=== PATIENT | female | born 2000 ===

== ENCOUNTER 2025-03-18 05:56 | Outpatient (REF) | payer OTHER, SELFPAY ==
--- OUTSIDE RECORDS SUMMARY | 2025-03-18 05:59 | XMS_ITS | Encounter Summary ---
Author Organization [facility] Address [address] [place] [id number] Phone Care Team Providers Care Reed Cleaner Name Role Phone Abilio Justice MD Primary Care Provider [phone] Encounter Details Date Type Department Care Team (Late st Contact Info) Description 02/17/2017 Conversion Encounter [facility] [address] [facility], [address] [place], [place] [address] More Churchill MD [address] [place] [place] [address] [address] [place] [address] Social History Tobacco Use Types Packs/Day Years Used Date Smoking Tobacco: Never Comments:never smoker Comments Unknown Sex and Gender Information Value Date Recorded Sex Assigned at Not on file Legal Sex Female 12:44 AM EST Gender Identity Not on file Sexual Orientation Straight 05/16/2019 10 :08 AM EDT documented as of this encounter Plan of Treatment Not on file documented as of this encounter Visit Diagnoses Not on filedocumented in this encounter Care Teams Reed Cleaner Relationship Specialty Start Date End Date Abilio Justice MD [address] [facility] [address] [place], [place] [phone] PCP - General Pediatrics 04/17/20 documented as of this encounter
== END 2025-03-18 05:57 | disposition home or self-care (01) ==
LOC: HO.UMASIMG 05:56
PROVIDERS: Visit Provider Physician Assistant Medical
DX: Z13.89 Encounter for screening for other disorder (principal)

== ENCOUNTER 2025-04-08 08:17 | Outpatient (REF) | payer OTHER, SELFPAY ==
--- OUTSIDE RECORDS SUMMARY | 2025-04-08 08:19 | XMS_ITS | Encounter Summary ---
Author Organization [facility] Address [address] [place] [address] Care Team Providers Care Rolls Mill Operator Name Role Phone Azul Aguilar MD Primary Care Provider [phone] Encounter Details Date Type Department Care Team ([facility] Contact Info) Description 03/08/2024 Pharmacy Visit [facility] [address] [place] [phone] Social History Tobacco Use Types Packs/Day Years Used Date Smoking Tobacco: Every Day Cigarettes Smokeless Tobacco: Never Comments:Vape Alcohol Use Standard Drinks/Week Comments No 0 (1 standard drink = 0.6 oz pur e alcohol) never Housing Stability - SDOH Screener Answer Date Recorded What is your living situation today? Steady hous ing 03/05/2024 Do you need help with Housing/[facility] resources? Not on file 03/05/2024 Patient indicated no issues from the most recent SDOH questionnaire Not on file 03/05/2024 Homeless diagnosis active in problem list or in an encounter in the past year? Not on file 03/05/2024 Health Literacy - SDOH Screener Answer Date Recorded Do you ever need help readin g or understanding information about your medical conditions? No 03/05/2024 Patient indicated no issues from the most recent THRIVE questionnaire Not on file 03/05/2024 Oral Health - SDOH Screener Answer Date Recorded Was there a time you needed dental care in the last 12 months but was not received? No 03/05/2024 Patient indicated no issues from the most recent THRIVE questionnaire Not on file 03/05/2024 Transportation - SDOH Screener Answer D ate Recorded Do you have trouble getting transportation to medical appointments? No 03/05/2024 Do you need help with Transp ortation to medical appointments? Not on file 03/05/2024 Patient indicated no issues from the most recent SDOH questionnaire Not on file 03/05/2024 Food Insecurity - SDOH Screener Answer Date Recorded Within the past 12 months, t he food you bought just didn't last and you didn't have money to get more? Never true 03/05/2024 Within the past 12 months, y ou worried whether your food would run out before you got money to buy more? Never true 2023 Do you need help with Food resources? Not on parish e 03/05/2024 Patient indicated no issues from the most recent SDOH questionnaire Not on file 03/05/2024 Depression Answer Date Recorded PHQ-9 Total Score 0 03/08/2024 [place] Depression Scale Score Not o n file 03/08/2024 EPDS: The thought of harming myself has occurred to me Not on file 03/08/2024 PHQ-A: In the past year have you felt depressed or sad most days, even if you felt okay sometimes? Not on file 03/08/2024 PHQ-A: If you are experienci ng any of the problems on this form, how difficult have these problems made it for you to do your work, take care of things at home or get along with other people? Not on file 03/08/2024 PHQ-A: Has there been a time in the past month when you have had serious thoughts about ending your life? Not on file 04/2024 PHQ-A: Have you ever, in you r whole life, tried to kill yourself or made a suicide attempt? Not on file 03/08/2024 PHQ9/A: Thoughts that you wo uld be better off , or of hurting yourself in some way? No 03/08/2024 Care Giving - SDOH Screener Answer Date Recorded Do you have trouble taking c are of a child, family member or friend? No 03/05/2024 Do you need help with Childcare/Daycare? Not on file 03/05/2024 Do you need help with Elder Care Not on file 03/05/2024 Patient indicated no issues from the most recent SDOH questionnaire Not on file 03/05/2024 Employment - SDOH Screener Answer Date Recorded Are you currently unemployed and looking for a j ob? No 03/05/2024 Are you or your parent/guard tex currently unemployed and looking for a job? (age <= 21) Not on file 03/05/2024 Patient indicated no issues from the most recent THRIVE questionnaire (<22) Not on file 03/05/2024 Patient indicated no issues from the most recent THRIVE questionnaire (22+) Not on file 03/05/2024 Affording Medications - SDOH Screener Answer Date Recorded Do you have trouble paying for medications? No 03/05/2024 Do you need help with Paying for Medicine resour juan manuel? Not on file 03/05/2024 Patient indicated no issues from the most recent SDOH questionnaire Not on file 03/05/2024 Utilities - SDOH Screener Answer Date R ecorded Do you have trouble paying y our heating and/or electricity bill? No 03/05/2024 Do you need help with Utilities? Not on file 03/05/2024 Patient indicated no issues from the most recent SDOH questionnaire Not on file 03/05/2024 Social Isolation - SDOH Screener Answer Date Recorded Are you dissatisfied with ho w often you see or talk to people that you care about and feel close to? (For example: talking to friends on the phone, visiting friends or family, going to moravian or club meetings) No 03/05/2024 Patient indicated no issues from the most recent THRIVE questionnaire Not on file 03/05/2024 Adolescent Depression Answer Date Recor ded PHQ-9 Total Score 0 03/08/2024 [place] Depression Scale Score Not o n file 03/08/2024 EPDS: The thought of harming myself has occurred to me Not on file 03/08/2024 PHQ-A: In the past year have you felt depressed or sad most days, even if you felt okay sometimes? Not on file 03/08/2024 PHQ-A: If you are experienci ng any of the problems on this form, how difficult have these problems made it for you to do your work, take care of things at home or get along with other people? Not on file 03/08/2024 PHQ-A: Has there been a time in the past month when you have had serious thoughts about ending your life? Not on file 04/2024 PHQ-A: Have you ever, in you r whole life, tried to kill yourself or made a suicide attempt? Not on file 03/08/2024 PHQ9/A: Thoughts that you wo uld be better off , or of hurting yourself in some way? No 03/08/2024 Comments No Sex and Gender Information Value Date Recorded Sex Assigned at Female 03/05/2024 3:50 PM EDT Legal Sex Female 4:18 PM EDT Gender Identity Female 03/05/2024 3:50 PM EDT Sexual Orientation Straight 03/05/2024 3: 50 PM EDT documented as of this encounter Plan of Treatment Upcoming Encounters Date Type Department Care Team (Late st Contact Info) Description 05/30/2025 11:00 AM EDT Office Visit [facility] [address] [place] [phone] Azul Aguilar MD [address] [place] [id number] Adriana Mccann NP [address] [place] [phone] documented as of this encounter Visit Diagnoses Not on filedocumented in this encounter Care Teams Rolls Mill Operator Relationship Specialty Start Date End Date Azul Aguilar MD [address] [place] [id number] PCP - General Family Medicine 04/20/20 documented as of this encounter
--- OUTSIDE RECORDS SUMMARY | 2025-04-08 08:19 | XMS_ITS | Encounter Summary ---
Author Organization [facility] Address [address] [place] [phone] Phone Care Team Providers Care Sensory Scientist Name Role Phone Abilio Justice MD Primary Care Provider [phone] Encounter Details Date Type Department Care Team (Late st Contact Info) Description 02/17/2017 Conversion Encounter [facility] [address] [facility], [address] [place], [place] [phone] More Churchill MD [address] [place] [address] [address] [place] [address] Social History Tobacco Use Types Packs/Day Years [...] on filedocumented in this encounter Care Teams Sensory Scientist Relationship Specialty Start Date End Date Abilio Justice MD [address] [facility] [address] [place], [place] [phone] PCP - General Pediatrics 04/17/20 documented as of this encounter
== END 2025-04-08 08:18 | disposition home or self-care (01) ==
LOC: HO.UMASIMG 08:17
PROVIDERS: Visit Provider Physician Assistant Medical
DX: Z13.89 Encounter for screening for other disorder (principal)